=== PATIENT | female | born 1995 | race Caucasian/White ===

== ENCOUNTER 2017-01-29 22:32 | Emergency (ER) | payer MEDICAID ==
[~2017-01-29] VITALS: Ht 162.6 cm; Wt 58.1 kg
[2017-01-29 22:44] VITALS: BP 118/75
[2017-01-30] MEDS ORDERED: IPRATROPIUM BROM 0.5 MG/2.5ML INH SOL NEB ONE
[2017-01-30] MEDS ORDERED: ALBUTEROL SULF 2.5 MG/0.5ML(0.5%) NEB SOLN NEB ONE
== END 2017-01-30 01:37 | disposition home or self-care (01) ==
LOC: ER 22:32
DX: J45.909 Unspecified asthma, uncomplicated (principal)
CPT/HCPCS: 94640

== ENCOUNTER 2017-04-30 13:52 | Emergency (ER) | payer MEDICAID ==
[~2017-04-30] VITALS: Ht 162.6 cm; Wt 59.0 kg
[2017-04-30 14:26] VITALS: BP 117/61
== END 2017-04-30 14:39 | disposition home or self-care (01) ==
LOC: ER 13:52
DX: S00.03XA Contusion of scalp, initial encounter (principal); W19.XXXA Unspecified fall, initial encounter; Y93.89 Activity, other specified; Y99.8 Other external cause status; Y92.89 Other specified places as the place of occurrence of the external cause

== ENCOUNTER 2017-09-13 20:12 | Emergency (ER) | payer MEDICAID ==
[~2017-09-13] VITALS: Ht 149.9 cm; Wt 61.2 kg
[2017-09-13 21:35] VITALS: BP 105/72
== END 2017-09-14 00:21 | disposition home or self-care (01) ==
LOC: ER 20:12
DX: S46.911A Strain of unspecified muscle, fascia and tendon at shoulder and upper arm level, right arm, initial encounter (principal); R20.2 Paresthesia of skin; X58.XXXA Exposure to other specified factors, initial encounter; Y93.89 Activity, other specified; Y92.89 Other specified places as the place of occurrence of the external cause; Y99.8 Other external cause status
CPT/HCPCS: 71010; 73030

== ENCOUNTER 2017-12-15 22:08 | Emergency (ER) | payer MEDICAID ==
[~2017-12-15] VITALS: Ht 162.6 cm; Wt 63.5 kg
[2017-12-15 22:30] VITALS: BP 99/70
[2017-12-15 22:57] LABS: Basophils # (auto) 0 uL; Basophils % (auto) 0.3 % (0.0-2.0); Eosinophils # (auto) 0.1 uL; Eosinophils % (auto) 0.5 % (0.0-7.0); Hematocrit 46.3 % (36.0-46.0); Hemoglobin 15.6 g/dL (12.2-16.2); Lymphocytes # (auto) 0.8 uL; Lymphocytes % (auto) 6.8 % (10.0-50.0); Mean Corpuscular Hemoglobin 30.9 pg (28.0-32.0); Mean Corpuscular Hgb Conc. 33.6 g/dL (32.0-36.0); Monocytes # (auto) 0.7 uL; Monocytes % (auto) 5.8 % (0.0-12.0); Neutrophils # (auto) 10.7 uL; Neutrophils % (auto) 86.6 % (37.0-80.0); Nucleated Red Blood Cells % 0.1 %; Platelet Count (auto) 324 10^3/uL (140-450); Red Blood Cells 5.03 10^6/uL (4.0-5.20); Red Cell Distribution Width 11.9 % (11.8-14.3); White Blood Cell 12.3 10^3/uL (4.4-10.8)
[2017-12-15 23:21] LABS: Albumin 4.5 g/dL (3.4-5.0); BUN/Creatinine Ratio 11.8; Bilirubin, Total 0.5 mg/dL (0.2-1.0); Calcium 9.1 mg/dL (8.5-10.1); Magnesium 2.2 mg/dL (1.6-2.6); Potassium 3.9 mmol/L (3.5-5.1); Total Protein 8.6 g/dL (6.4-8.2)
== END 2017-12-16 03:45 | disposition left against medical advice (07) ==
LOC: ER 22:08
DX: R11.2 Nausea with vomiting, unspecified (principal); R19.7 Diarrhea, unspecified; Z53.21 Procedure and treatment not carried out due to patient leaving prior to being seen by health care provider
CPT/HCPCS: 36415; 80053; 83735; 85025

== ENCOUNTER 2021-04-14 23:12 | Emergency (ER) | payer MEDICAID ==
[~2021-04-14] VITALS: Ht 165.1 cm; Wt 71.7 kg
[2021-04-15] MEDS ORDERED: ACETAMINOPHEN 500 MG TAB PO ONE (03:15)
[2021-04-15] MEDS ORDERED: IBUPROFEN 800 MG TAB PO ONE (03:15)
[2021-04-15 03:25] VITALS: BP 108/73
== END 2021-04-15 03:49 | disposition home or self-care (01) ==
LOC: ER 23:17
DX: S13.9XXA Sprain of joints and ligaments of unspecified parts of neck, initial encounter (principal); S63.502A Unspecified sprain of left wrist, initial encounter; S09.90XA Unspecified injury of head, initial encounter; V80.010A Animal-rider injured by fall from or being thrown from horse in noncollision accident, initial encounter; Y93.89 Activity, other specified; Y92.89 Other specified places as the place of occurrence of the external cause; Y99.8 Other external cause status
CPT/HCPCS: 70450; 72125; 73100

== ENCOUNTER 2023-01-04 15:13 | Emergency (ER) | payer MEDICAID ==
[~2023-01-04] VITALS: Ht 165.1 cm; Wt 68.0 kg
[2023-01-04 16:20] VITALS: BP 113/62
[2023-01-04] MEDS ORDERED: NAPR500T31 PO (17:01)
== END 2023-01-04 17:14 | disposition home or self-care (01) ==
LOC: ER 15:13
DX: M23.92 Unspecified internal derangement of left knee (principal); M25.462 Effusion, left knee
CPT/HCPCS: 73562

== ENCOUNTER 2025-08-06 15:05 | Inpatient (IN) | payer MEDICAID ==
[~2025-08-06] VITALS: Ht 165.1 cm; Wt 68.1 kg
[~2025-08-06 15:05] MED LIST: NAPR-746 PO
--- NOTE | 2025-08-06 15:53 | ED.PDOC ---
HPI Comments HPI: This is a 30 year old female on Testosterone HRT x7 years BIBA presenting to the ED with chief complaint of chest pain. Patient reports that she has been experiencing left sided, sharp chest pain with associated palpitations and worsening pain with deep inspirations for the past hour. Patient relays that their pain is currently a 4/10 at this time. Patient states she has history of cardiomyopathy currently being followed up by her oncologist's office. Patient notes she receives radiation therapy once a week along with having a cardiac stress test before and after therapy each week. Patient reports that her last stress test was yesterday. Patient denies any SOB, dizziness, N/V, syncope, or headache. Denies . Past Medical history: Brain tumor, tumors to back, on radiation therapy, Cardiomyopathy unknown etiology, Testosterone HRT Past Surgical history: Denies Medications: Radiation therapy medication Social History: Tobacco use, ETOH, and drug use. Allergies: NKDA HPI: Poor Historian. REVIEW OF SYSTEMS: CONSTITUTIONAL: Denies acute: fever, diaphoresis, chills, generalized weakness. HEAD: Denies acute: headache, photophobia Eyes: Denies acute: Double vision, vision loss, eye pain, eye discharge. EARS: Denies acute: tinnitus, hearing loss, ear discharge, ear pain, THROAT: Denies acute: sore throat, swelling, difficulty swallowing , pain with swallowing, change in voice. NECK: Denies acute: neck pain, neck swelling, stiff neck. HEART: Denies acute : palpitations, LUNGS: Denies acute: SOB, wheezing, cough, hemoptysis ABDOMEN: Denies acute: abdominal pain, Nausea, Vomiting, diarrhea, melena , hematemesis, hematochezia SKIN: Denies acute: rash, redness, lesions, itchiness. EXTREMITIES: Denies acute: calf pain, weakness, denies pain in extremity. Denies acute: Low back pain. Neuro: Denies acute: focal neurological deficit, motor or sensory focal neurological deficit, tremors, seizure like activity, confusion, dizziness, change in mental status, loss of bowel or bladder function, cauda equina like symptoms. : Denies acute: dysuria, hematuria, flank pain, increase in urinary frequency. PSYCH: Denies acute: hallucination, suicidal ideation, homicidal ideation. FEMALE: Denies acute: abnormal vaginal bleeding, foul odor, unusual discharge. PHYSICAL EXAM: General: ---no-----acute distress, awake and alert. Head: normocephalic, atraumatic. No raccoon's eyes, no browning sign. Neck: supple, trachea is midline, no swelling. Throat: Normal phonation. Eyes:, no erythema, no purulent discharge, no proptosis, no icterus. Heart: regular rate, regular rhythm, no significant murmur appreciated. Lungs: no apparent respiratory distress, Able to speak in full sentences. No wheezing, no rhonchi, no crackles. No stridors Clear to auscultation bilaterally. Abdomen: non tender to palpation, non distended, soft, no guarding, no rebound, + bowel sounds. Neuro: Awake, Alert, oriented to name, self, situation, follows commands GCS=15. Speech is normal. Skin: no petechia, no purpura, no cyanosis, non-pale, not jaundice. Lower extremities: --no - Pitting edema no deformity, no focal swelling, no calf TTP. Makes eye contact. moves all four extremities. Face: no apparent facial droop. ED COURSE: DISCLAIMER: This medical document was created using an electronic medical record system with voice recognition software and computerized dictation system. Although this doc ument has been carefully reviewed, there might still be some phonetic and typographical errors. Occasional wrong-word or "sound-alike" substitutions may have occurred due to the inherent limitations of voice recognition software. These areas are purely typographical due to imperfections of the software programs and do not reflect any compromise in the patient's medical care. Please read the chart carefully and recognize, using context, where these substitutions have occurred. Chief Complaint: Chest Pain Time Seen by MD: 15:49 Primary Care Provider: CARLA Reviewed Notes: Medications, Allergies Allergies: Coded Allergies: NO KNOWN ALLERGIES (Unverified , 09/15/11) Home Meds Active Scripts Naproxen (Naproxen) 500 Mg Tab, 500 MG PO BID, #30 TAB Prov:BHARATHI THOMAS 01/04/23 Information Source: Patient, Emergency Med Personnel Mode of Arrival: EMS Was a procedure done? Was a procedure done?: No CP Differential Dx Differential Diagnosis: N/A Differential Diagnosis: Other (Ddx include but not limitied to gastritis, musculoskeletal pain, radiculopathy, atypical chest pain, dissection, aneurysm, ACS, unstable angina, hiatal hernia, GERD, anxiety, costochondritis, PE, pneumothroax, neoplasm, cardiac ischemia, drug abuse, anemia.) X-Ray, Labs, Meds, VS Vital Signs Date Time Temp Pulse Resp B/P (MAP) Pulse Ox O2 Delivery O2 Flow Rate FiO2 08/06/25 20:00 72 16 113/63 (80) 97 08/06/25 18:00 69 10 109/50 (69) 98 08/06/25 16:18 58 08/06/25 16:00 85 08/06/25 16:00 69 19 98 Room Air* 0 21 08/06/25 16:00 98.3 69 19 136/64 (88) 98 98.3 08/06/25 15:57 98.6 70 16 122/86 100 98.6 08/06/25 15:52 98.2 64 16 126/74 (91) 99 98.2 08/06/25 15:14 60 Lab Test 08/06/25 19:46 08/06/25 17:41 08/06/25 17:15 08/06/25 16:29 Range/Units Magnesium Level 2.1 1.6-2.6 mg/dL Troponin I High Sensitivity 5 5 4 </=54 ng/L C-Reactive Protein High Sensitivity 0.05 <1.0 mg/dL Urine Color Colorless Yellow Urine Clarity Clear Clear Urine pH 7.0 5.0-9.0 Urine Specific [place] 1.013 1.001-1.035 Urine Protein Negative Negative Urine Ketones Negative Negative Urine Blood Negative Negative /uL Urine Nitrite Negative Negative Urine Bilirubin Negative Negative Urine Urobilinogen Normal Negative mg/dL Urine Leukocyte Esterase Negative Negative /uL Urine RBC <1 0 - 3 /hpf Urine Microscopic WBC 2 0-3 /HPF Urine Squamous Epithelial Cells Few <5 /hpf Urine Bacteria Few H None Seen /hpf Urine Glucose Normal Normal mg/dL Urine Opiates Screen Pending Urine Fentanyl Screen Pending Urine Barbiturates Screen Pending Urine Phencyclidine Screen Pending Urine Amphetamines Screen Pending Urine Benzodiazepines Screen Pending Urine Cocaine Screen Pending Urine Cannabinoids Screen Pending White Blood Count 8.8 4.4-10.8 10^3/uL Red Blood Count 4.67 4.5-5.90 10^6/uL Hemoglobin 14.9 13.5-17.5 g/dL Hematocrit 42.5 41.0-53.0 % Mean Corpuscular Volume 90.9 80.0-100.0 fL Mean Corpuscular Hemoglobin 31.9 28.0-32.0 pg Mean Corpuscular Hemoglobin Concent 35.1 32.0-36.0 g/dL Red Cell Distribution Width 12.0 11.8-14.3 % Platelet Count 266 140-450 10^3/uL Mean Platelet Volume 8.7 6.9-10.8 fL Neutrophils (%) (Auto) 67.7 37.0-80.0 % Lymphocytes (%) (Auto) 24.9 10.0-50.0 % Monocytes (%) (Auto) 4.9 0.0-12.0 % Eosinophils (%) (Auto) 2.0 0.0-7.0 % Basophils (%) (Auto) 0.5 0.0-2.0 % Neutrophils # (Auto) 5.9 1.6-8.6 10 ^3/uL Lymphocytes # (Auto) 2.2 0.4-5.4 10 ^3/uL Monocytes # (Auto) 0.4 0-1.3 10 ^3/uL Eosinophils # (Auto) 0.2 0-0.8 10 ^3/uL Basophils # (Auto) 0 0-0.2 10 ^3/uL Nucleated Red Blood Cells 0.0 % Sodium Level 143 136-145 mmol/L Potassium Level 4.0 3.5-5.1 mmol/L Chloride Level 107 98-107 mmol/L Carbon Dioxide Level 26 20-31 mmol/L Anion Gap 10 5-15 Blood Urea Nitrogen 9 9-23 mg/dL Creatinine 0.89 0.700-1.30 mg/dL Glomerular Filtration Rate Calc 118 >90 mL/min BUN/Creatinine Ratio 10.1 10.0-20.0 Serum Glucose 86 74-106 mg/dL Calcium Level 9.3 8.7-10.4 mg/dL Total Bilirubin 0.3 0.2-1.0 mg/dL Aspartate Amino Transferase (AST) 28 13-40 U/L Alanine Aminotransferase (ALT) 34 7-40 U/L Alkaline Phosphatase 78 46-116 U/L B-Type Natriuretic Peptide 5.26 0-100 pg/mL Total Protein 7.2 5.7-8.2 g/dL Albumin 4.4 3.2-4.8 g/dL Test 08/06/25 16:24 Range/Units Lactic Acid Level 0.8 0.4-2.0 mmol/L [place] [id number] Ph: [phone] DIAGNOSTIC IMAGING Diagnostic Imaging Report : [id number] Signed PATIENT: DANA PEÑALOZA RACCT: [id number] UNIT: [id number] : 1995 LOC: ER ROOM / BED: / AGE / SEX: 30 / M ADM STATUS: REG ER SERVICE 1530 ORDERING PHYSICIAN: BHARAT PADILLA DO PROCEDURE(s): CXRP - CHEST PORTABLE REASON: cp ORDER NUMBER(s): [id number], ACCESSION NUMBER(s): [id number] CHEST RADIOGRAPH Indication: cp Technique: Single frontal view of the chest was obtained COMPARISON: None FINDINGS: Lines and Tubes: None Lungs: Increased interstitial prominence. This may represent pulmonary vascular congestion and/or viral pneumonia. Pleura: No effusion.No pneumothorax. Cardiomediastinal contours: Cardiomegaly. Bones: Unremarkable IMPRESSION: Increased interstitial prominence. This may represent pulmonary vascular congestion and/or viral pneumonia. ATED BY: NADIR FUENTES MD DICTATED DATE/TIME: 08/06/251612 SIGNED BY: NADIR FUENTES MD SIGNED DATE/TIME: 08/06/251612 CC: Time of 1ST Reevaluation: 16:49 Reevaluation 1ST: Unchanged Patient Education/Counseling: Diagnosis, Treatment Family Education/Counseling: No Family Present Comments MDM: patient presented with the above HPI.---chest pain with a history of cardiomyopathy---workup was initiated. patient was found with the above mentioned diagnosis. the following medications were ordered: please refer to order lists of meds and tests obtained by myself Dr. Padilla. Patient ED course and VS have been stabilized. Patient has been reassessed in the ED and remained in a stable condition. Pertinent incidental findings were discussed with the patient and/or family. Patient/family voices understanding and is agreeable with plan. Patient has been observed in the ED adequate length of time to insure improv ement/stability. Escalation of care considered: Consideration of escalation to observation or admission Patient was ADMITTED to the medicine team for further evaluation and treatment of their presentation. All the reports of any imaging studies that were ordered by myself were reviewed by myself. Departure 1 Departure Time of Disposition: 20:07 Impression: Primary Impression: Chest pain Additional Impression: Cardiomyopathy Disposition: 09 ADMITTED INPATIENT Admit to: Tele Condition: Guarded Discharged With: Self Critical Care Note Critical Care Time?: No Heart Score Heart Score: Heart Score Response (Comments) Value History Moderate Suspicious 1 EKG Normal 0 Age <45 0 Risk Factors 1 or 2 risk factors 1 Troponin Normal limit 0 Total 2 I personally scribed for BHARAT PADILLA DO ([email or web address]) on 08/06/25 at 15:53. Elect ronically submitted by Lefty Camargo ([email or web address]). I personally scribed for BHARAT PADILLA DO ([email or web address]) on 08/06/25 at 16:29. Jose carterically submitted by Lefty Camargo ([email or web address]). BHARAT PADILLA DO Aug 06, 2025 15:53
[2025-08-06 16:00] VITALS: PULSE 69; RESP 19; O2SAT 98
--- NOTE | 2025-08-06 16:15 | DVH ---
CHEST RADIOGRAPH Indication: cp Technique: Single frontal view of the chest was obtained COMPARISON: None FINDINGS: Lines and Tubes: None Lungs: Increased interstitial prominence. This may represent pulmonary vascular congestion and/or viral pneumonia. Pleura: No effusion.No pneumothorax. Cardiomediastinal contours: Cardiomegaly. Bones: Unremarkable IMPRESSION: Increased interstitial prominence. This may represent pulmonary vascular congestion and/or viral pneumonia.
[2025-08-06 16:37] LABS: Hematocrit 42.5 % (41.0-53.0); Hemoglobin 14.9 g/dL (13.5-17.5); Mean Corpuscular Hemoglobin 31.9 pg (28.0-32.0); Mean Corpuscular Volume 90.9 fL (80.0-100.0); Nucleated Red Blood Cells % 0.0 %
[2025-08-06 17:00] LABS: Alanine Aminotransferase 34 U/L (7-40); Albumin 4.4 g/dL (3.2-4.8); Alkaline Phosphatase 78 U/L (46-116); Anion Gap 10 (5-15); BUN/Creatinine Ratio 10.1 (10.0-20.0); Bilirubin, Total 0.3 mg/dL (0.2-1.0); Blood Urea Nitrogen 9 mg/dL (9-23); Calcium 9.3 mg/dL (8.7-10.4); Carbon Dioxide 26 mmol/L (20-31); Chloride 107 mmol/L (98-107); Glucose 86 mg/dL (74-106); Potassium 4.0 mmol/L (3.5-5.1); Sodium 143 mmol/L (136-145); Total Protein 7.2 g/dL (5.7-8.2)
[2025-08-06 18:04] LABS: Urine Protein, UAD Negative (Negative)
[2025-08-06] MEDS: IOHEXOL 300 MG/ML 100ML BOTTLE IJ ONE (19:30)
[2025-08-06] MEDS ORDERED: ONDANSETRON HCL 4 MG/2 ML VIAL IV PRN (22:00)
[2025-08-06] MEDS ORDERED: HYDROcodone-ACET 5/325MG TAB PO PRN (22:00)
--- NOTE | 2025-08-06 22:26 | DVHHPRES ---
History of Present Illness Resident Creating Document: DARRYL MENDOZA History of Present Illness Patient is a 30-year-old female on Testosterone hormone replacement therapy for 7 years with past medical history of brain tumor, metastasis to back on radiation therapy and hereditary cardiomyopathy, presented to [facility] ED with complaint of chest pain. The patient reports that the chest pain began today around 2:00 p.m. while resting at home, described as left- sided, sharp, non-radiating, 4/10 in intensity and associated with headache, dizziness and shortness breath. She also noted tingling in the right hand at onset. The patient denies nausea, vomiting, syncope, or . She reports a history of cardiomyopathy, currently managed by her cardiology. She receives radiation therapy once weekly and undergoes a cardiac stress test before and after each therapy session; her recent stress test was yesterday and was normal. On evaluation in the ED, patient is afebrile, vitals are stable. Initial labs show within normal limits. Chest X-ray shows increased interstitial prominence and cardiomegaly. The patient was started on IV antibiotics and IV fluids. Patient is admitted for further evaluation and management. Past Medical History brain tumor, hereditary cardiomyopathy Past Surgical History: None Family History Mother and brother: Hereditary cardiomyopathy Smoke: <1 pack per day ALCOHOL: none Drugs: None Lives: with Family Review of Systems Review of Systems Constitutional: Headache, dizziness Eyes: No Pain, No Vision change, No Conjunctivae inflammation, No Eyelid inflammation, No Other, No Redness ENT: No Ear pain, No Ear discharge, No Nose pain, No Nose discharge, No Nose congestion, No Mouth pain, No Mouth swelling, No Throat pain, No Throat swelling, No Other Cardiovascular: Chest Pain, Palpitations, No Orthopnea, No Paroxysmal No Dyspn ea, No Edema, No Lt Headedness, No Other Respiratory: Cough, No Dry, Shortness of breath, No SOB with exertion, No Wheezing, No Hemoptysis, No Pleuritic Pain, No Sputum, No Other Gastrointestinal: No Nausea, No Vomiting, No Abdominal Pain, No Diarrhea, No Constipation, No Melena, No Hematochezia, No Other Genitourinary: No Dysuria, No Frequency, No Incontinence, No Hematuria, No Retention, No Other Musculoskeletal: No other, No neck pain, No shoulder pain, No arm pain, No back pain, No hand pain, No leg pain, No foot pain Skin: No Rash, No Lesions, No Jaundice, No Bruising, No Other Allergies: Coded Allergies: NO KNOWN ALLERGIES (Unverified , 09/15/11) Medications Current Medications Medications Dose Ordered Sig/Krista Route Start Time Stop Time Status Last Admin Dose Admin Acetaminophen/ Hydrocodone Bitart 1 tab Q4HP PRN PO 08/06/25 22:00 UNV Ondansetron HCl 4 mg Q4HP PRN IV 08/06/25 22:00 UNV Acetaminophen 650 mg Q6HP PRN PO 08/06/25 22:00 UNV Azithromycin 250 ml @ 125 mls/hr DAILY IV 08/07/25 10:00 UNV Albuterol 2.5 mg Q6HPRN PRN NEB 08/06/25 22:00 UNV Ipratropium [place] 0.5 mg Q6HPRN PRN NEB 08/06/25 22:00 UNV Exam Vital Signs Vital Signs Date Time Temp Pulse Resp B/P (MAP) Pulse Ox O2 Delivery O2 Flow Rate FiO2 08/06/25 20:00 72 16 113/63 (80) 97 08/06/25 16:00 Room Air* 0 21 08/06/25 16:00 98.3 98.3 Exam General Appearance: Cooperative. Well developed. Well nourished. NAD Head Exam: Normal inspection Neck Exam: Normal inspection. Non-tender. Normal alignment Pulmonary/Respiratory: Bilateral rhonchi. Chest non-tender. Clear bilateral breath sounds, no crackles, no wheezing. Cardiovascular/Chest: Regular rate and rhythm. No murmurs. No JVD. Peripheral Pulses: 2+ Radial (R). 2+ Radial (L). 2+ Pedal (R). 2+ Pedal (L) Abdominal Exam: Normal bowel sounds. Soft. normal abdomen, no visible veins, Nontender. No hepatospenomegaly. No masses Ankle Exam: Negative ankle edema Lower extremities: Negative lower extremity edema Neuro/Mental Status: A&O x4. Coherent. Thoughts/Psych: Normal thought pattern. Appropriate mood and affect. Good judgement and insight Skin Exam: Normal inspection. Normal color. Warm. Dry Labs/Xrays Labs Test 08/06/25 19:46 08/06/25 17:15 08/06/25 16:29 08/06/25 16:24 Range/Units Troponin I High Sensitivity 5 </=54 ng/L Urine Color Colorless Yellow Urine Clarity Clear Clear Urine pH 7.0 5.0-9.0 Urine Specific [place] 1.013 1.001-1.035 Urine Protein Negative Negative Urine Ketones Negative Negative Urine Blood Negative Negative /uL Urine Nitrite Negative Negative Urine Bilirubin Negative Negative Urine Urobilinogen Normal Negative mg/dL Urine Leukocyte Esterase Negative Negative /uL Urine RBC <1 0 - 3 /hpf Urine Microscopic WBC 2 0-3 /HPF Urine Squamous Epithelial Cells Few <5 /hpf Urine Bacteria Few H None Seen /hpf Urine Glucose Normal Normal mg/dL White Blood Count 8.8 4.4-10.8 10^3/uL Red Blood Count 4.67 4.5-5.90 10^6/uL Hemoglobin 14.9 13.5-17.5 g/dL Hematocrit 42.5 41.0-53.0 % Mean Corpuscular Volume 90.9 80.0-100.0 fL Mean Corpuscular Hemoglobin 31.9 28.0-32.0 pg Mean Corpuscular Hemoglobin Concent 35.1 32.0-36.0 g/dL Red Cell Distribution Width 12.0 11.8-14.3 % Platelet Count 266 140-450 10^3/uL Mean Platelet Volume 8.7 6.9-10.8 fL Neutrophils (%) (Auto) 67.7 37.0-80.0 % Lymphocytes (%) (Auto) 24.9 10.0-50.0 % Monocytes (%) (Auto) 4.9 0.0-12.0 % Eosinophils (%) (Auto) 2.0 0.0-7.0 % Basophils (%) (Auto) 0.5 0.0-2.0 % Neutrophils # (Auto) 5.9 1.6-8.6 10 ^3/uL Lymphocytes # (Auto) 2.2 0.4-5.4 10 ^3/uL Monocytes # (Auto) 0.4 0-1.3 10 ^3/uL Eosinophils # (Auto) 0.2 0-0.8 10 ^3/uL Basophils # (Auto) 0 0-0.2 10 ^3/uL Nucleated Red Blood Cells 0.0 % Sodium Level 143 136-145 mmol/L Potassium Level 4.0 3.5-5.1 mmol/L Chloride Level 107 98-107 mmol/L Carbon Dioxide Level 26 20-31 mmol/L Anion Gap 10 5-15 Blood Urea Nitrogen 9 9-23 mg/dL Creatinine 0.89 0.700-1.30 mg/dL Glomerular Filtration Rate Calc 118 >90 mL/min BUN/Creatinine Ratio 10.1 10.0-20.0 Serum Glucose 86 74-106 mg/dL Calcium Level 9.3 8.7-10.4 mg/dL Total Bilirubin 0.3 0.2-1.0 mg/dL Aspartate Amino Transferase (AST) 28 13-40 U/L Alanine Aminotransferase (ALT) 34 7-40 U/L Alkaline Phosphatase 78 46-116 U/L B-Type Natriuretic Peptide 5.26 0-100 pg/mL Total Protein 7.2 5.7-8.2 g/dL Albumin 4.4 3.2-4.8 g/dL Lactic Acid Level 0.8 0.4-2.0 mmol/L SEPSIS Sepsis Screen Date sepsis recognized/suspect: Aug 06, 2025 Time Sepsis recognized/suspect: 1509 Recent Procedure: No On Antibiotic Therapy: No Respiratory Rate >20: No Heart Rate >90: No Temp<36 C (96.8 F) or >38.3 C: No SBP <90 or MAP <65 mmHG: No New Acute Mental Status Change: No Is the patient on CPAP, BIPAP,: No Physician Orders Surface Hydrologist (08/06/25 ) Chest Portable (08/06/25 15:30) Electrocardigram (08/06/25 15:30) Electrocardigram (08/06/25 16:30) Electrocardigram (08/06/25 18:30) Admit (08/06/25 21:57) Allergies (08/06/25 21:57) Code Status (08/06/25 21:57) Hydrocodone-Acet 5/325mg Tab ([place] 5/32 (08/06/25 22:00) Ondansetron Hcl (Zofran) (08/06/25 22:00) Complete Blood Count (08/07/25 04:00) Comprehensive Metabolic Panel (08/07/25 04:00) Echo 2d Mode Cardiac Dop (08/06/25 21:57) Condition: Stable (08/06/25 21:57) Acetaminophen Tablet (Tylenol Tablet) (08/06/25 22:00) Stat Ekg For Chest Pain (08/06/25 21:57) Notify Of Changes From Base (08/06/25 21:57) Drug Screen (08/06/25 21:57) Magnesium (08/06/25 21:57) Azithromycin 500mg/ 250ml (Zithromax 50 (08/07/25 10:00) Azithromycin 500mg/ 250ml (Zithromax 50 (08/06/25 22:00) Sodium Chloride 0.9% (08/06/25 22:00) Covid19 Antigen Awa (08/06/25 ) Rapid Influenza A&B (08/06/25 21:57) Cardiac Diet-2gna,Lofat,Lochol (08/07/25 Breakfast) C-Reactive Protein (08/06/25 21:57) Erythrocyte Sedimentation Rate (08/06/25 21:57) Respiratory Culture W/ Gs (08/06/25 21:57) Albuterol Medneb (Ventolin Medneb) (08/06/25 22:00) Ipratropium Medneb (Atrovent Medneb) (08/06/25 22:00) Med Neb Initial Treatment (08/06/25 21:57) Vital Signs Date Time Temp Pulse Resp B/P (MAP) Pulse Ox O2 Delivery O2 Flow Rate FiO2 08/06/25 20:00 72 16 113/63 (80) 97 08/06/25 18:00 69 10 109/50 (69) 98 08/06/25 16:18 58 08/06/25 16:00 85 08/06/25 16:00 69 19 98 Room Air* 0 21 08/06/25 16:00 98.3 69 19 136/64 (88) 98 98.3 08/06/25 15:57 98.6 70 16 122/86 100 98.6 08/06/25 15:52 98.2 64 16 126/74 (91) 99 98.2 08/06/25 15:14 60 Laboratory Tests Test 08/06/25 16:24 08/06/25 16:29 Lactic Acid Level 0.8 mmol/L (0.4-2.0) White Blood Count 8.8 10^3/uL (4.4-10.8) Assessment/Plan Assessment/Plan Atypical pneumonia Possible viral pneumonia Chest X-ray: Increased interstitial prominence. This may represent pulmonary vascular congestion and/or viral pneumonia. ESR CRP Pain management with Tylenol and [place] Zofran 4 mg IV q4h Azithromycin IV daily IV NS 100 mL MLS/HR one Albuterol 2.5 mg nebs q6h Ipratropium 0.5 mg NEB q6h sputum culture Cardiomegaly History of hereditary cardiomyopathy Echocardiogram ordered Chest X-ray: Cardiomegaly BNP 5.26 Brain tumor on radiation therapy Head CT (04/14/21): No intracranial hemorrhage or skull fracture. The brain is normal in appearance. Diet: Cardiac Goals of care: Full code, discussed for >30 minutes on 08/06/25 Plan discussed with patient Plan discussed with Dr. Mendoza Plan discussed with: Patient My Orders Orders - DARRYL MENDOZA RESIDENT Procedure Category Date Status Time Admit ADMIT 08/06/25 Transmitted 21:57 Allergies HEIKE 08/06/25 In Process 21:57 Code Status CODE 08/06/25 Transmitted 21:57 Hydrocodone-Acet PHA 08/06/25 Logged 5/325mg Tab ([place] 22:00 Ondansetron Hcl PHA 08/06/25 Logged (Zofran) 22:00 Complete Blood Count LAB 08/07/25 Verified 04:00 Comprehensive LAB 08/07/25 Verified Metabolic Panel 04:00 Echo 2d Mode Cardiac US 08/06/25 Logged DOP 21:57 Condition: Stable HEIKE 08/06/25 In Process 21:57 Acetaminophen Tablet PHA 08/06/25 Logged (Tylenol Tablet) 22:00 Stat Ekg For Chest HEIKE 08/06/25 In Process Pain 21:57 Notify Md Of Changes HEIKE 08/06/25 In Process From Base 21:57 Drug Screen LAB 08/06/25 Logged 21:57 Magnesium LAB 08/06/25 Logged 21:57 Azithromycin 500mg/ PHA 08/07/25 Logged 250ml (Zithromax 50 10:00 Azithromycin 500mg/ PHA 08/06/25 Logged 250ml (Zithromax 50 22:00 Sodium Chloride 0.9% PHA 08/06/25 Logged 22:00 Covid19 Antigen Awa LAB 08/06/25 Logged Rapid Influenza A&B LAB 08/06/25 Logged 21:57 Cardiac DIET 08/07/25 Transmitted Diet-2gna,Lofat,Lochol Breakfast C-Reactive Protein LAB 08/06/25 Logged 21:57 Erythrocyte LAB 08/06/25 Logged Sedimentation Rate 21:57 Respiratory Culture JENSEN 08/06/25 Logged W/ Gs 21:57 Albuterol Medneb PHA 08/06/25 Logged (Ventolin Medneb) 22:00 Ipratropium Medneb PHA 08/06/25 Logged (Atrovent Medneb) 22:00 Med Neb Initial RT 08/06/25 Logged Treatment 21:57 Date of Service: Aug 06, 2025 Billing Provider: MARQUITA MENDOZA MD Common Visit Codes: 59570-[id number] INP/OBS CARE (HIGH) Secondary Visit Codes: 68699-[id number] CARE PLAN 30 MINUTES DARRYL MENDOZA RESIDENT Aug 06, 2025 22:26
[2025-08-06 22:37] VITALS: BP 113/63; PULSE 72; RESP 16; TEMP 98.3; O2SAT 97
[2025-08-06 22:59] LABS: Magnesium 2.1 mg/dL (1.6-2.6)
[2025-08-06] MEDS: SODIUM CHLORIDE 0.9% 1,000 ML IV ONE (23:43)
[2025-08-06] MEDS: AZITHROMYCIN 500MG/ 250ML 250 ML IV ONE (23:50)
[2025-08-07 05:40] LABS: COVID19 ANTIGEN SOFIA FIA NEGATIVE (NEGATIVE)
[2025-08-07 05:46] LABS: Hematocrit 44.2 % (41.0-53.0); Hemoglobin 15.1 g/dL (13.5-17.5); Mean Corpuscular Hemoglobin 31.4 pg (28.0-32.0); Mean Corpuscular Volume 91.7 fL (80.0-100.0); Nucleated Red Blood Cells % 0.1 %
[2025-08-07 06:04] LABS: Alanine Aminotransferase 38 U/L (7-40); Albumin 4.1 g/dL (3.2-4.8); Alkaline Phosphatase 75 U/L (46-116); Anion Gap 11 (5-15); BUN/Creatinine Ratio 9.5 (10.0-20.0); Bilirubin, Total 0.6 mg/dL (0.2-1.0); Calcium 9.3 mg/dL (8.7-10.4); Carbon Dioxide 27 mmol/L (20-31); Chloride 106 mmol/L (98-107); Glucose 86 mg/dL (74-106); Potassium 4.2 mmol/L (3.5-5.1); Sodium 144 mmol/L (136-145); Total Protein 6.9 g/dL (5.7-8.2)
[2025-08-07 06:11] LABS: Blood Urea Nitrogen 9 mg/dL (9-23)
[2025-08-07 08:00] VITALS: PULSE 65; RESP 15; O2SAT 98
[2025-08-07 09:48] VITALS: O2SAT 96
[2025-08-07] MEDS ORDERED: AZITHROMYCIN 500MG/ 250ML 250 ML IV SCH (10:00)
--- NOTE | 2025-08-07 11:44 | ECG ---
[facility] Test Date: 2025-08-06 Test Time: 16:18:18 Pat Name: DANA PEÑALOZA Department: ER Room: 0202T Gender: M Eyelet Punch Operator: DR HOODB: 1995 Requested By: BHARAT PADILLA Order Number: [id number] Reading MD: Antoni Stewart Measurements Intervals [place] Rate: 58 P: 64 MT: 180 QRS: 32 QRSD: 92 T: 24 QT: 397 QTc: 390 Interpretive Statements Sinus rhythm Ventricular premature complex Electronically Signed On 08-08-2025 15:44:47 PST by Antoni Stewart Please click the below link to view image of tracing.
[2025-08-07] MEDS: ACETAMINOPHEN 325 MG TAB PO PRN (13:19)
--- NOTE | 2025-08-07 16:04 | DVHPNRES ---
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 She also complains of shortness of breath and cough we started with the same time as the chest pain. Patient reports having headache since the past 3 days. Patient reports that a recent cardiac stress test done was normal. Patient denies any nausea, vomiting or syncope. 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, hereditary cardiomyopathy, on testosterone hormone replacement therapy Family history: Family history of hereditary cardiomyopathy in mother and brother Social history: to pack-year smoking history, denies alcohol and drug use Allergic history: no known allergies Constitutional: Headache, dizziness Eyes: No Pain, No Vision change, No Conjunctivae inflammation, No Eyelid inflammation, No Other, No Redness ENT: No Ear pain, No Ear discharge, No Nose pain, No Nose discharge, No Nose congestion, No Mouth pain, No Mouth swelling, No Throat pain, No Throat swelling, No Other Cardiovascular: Chest Pain, Palpitations, No Orthopnea, No Paroxysmal No Dyspnea, No Edema, No Lt Headedness, No Other Respiratory: Cough, No Dry, Shortness of breath, No SOB with exertion, No Wheezing, No Hemoptysis, No Pleuritic Pain, No Sputum, No Other Gastrointestinal: No Nausea, No Vomiting, No Abdominal Pain, No Diarrhea, No Constipation, No Melena, No Hematochezia, No Other Genitourinary: No Dysuria, No Frequency, No Incontinence, No Hematuria, No Retention, No Other Musculoskeletal: No other, No neck pain, No shoulder pain, No arm pain, No back pain, No hand pain, No leg pain, No foot pain Skin: No Rash, No Lesions, No Jaundice, No Bruising, No Other Objective vital signs Vital Sign Date Time Temp Pulse Resp B/P (MAP) Pulse Ox O2 Delivery O2 Flow Rate FiO2 08/07/25 14:00 70 13 111/69 (83) 96 08/07/25 09:48 Room Air 08/07/25 09:48 0 21 08/07/25 08:00 98.1 98.1 Total Intake and Output 08/06/25 08/06/25 08/07/25 15:00 23:00 07:00 Intake Total 300 ml Balance 300 ml medications Current Medications Medications Dose Ordered Sig/Krista Route Start Time Stop Time Status Last Admin Dose Admin Acetaminophen/ Hydrocodone Bitart 1 tab Q4HP PRN PO 08/06/25 22:00 Ondansetron HCl 4 mg Q4HP PRN IV 08/06/25 22:00 Acetaminophen 650 mg Q6HP PRN PO 08/06/25 22:00 08/07/25 13:19 650 MG Albuterol 2.5 mg Q6HPRN PRN NEB 08/06/25 22:00 Ipratropium [place] 0.5 mg Q6HPRN PRN NEB 08/06/25 22:00 Azithromycin 250 ml @ 125 mls/hr Q24H IV 08/07/25 22:45 Ceftriaxone Sodium 50 ml @ 100 mls/hr DAILY@ IV 08/08/25 09:00 Examination General Appearance: Cooperative. Well developed. Well nourished. NAD Head Exam: Normal inspection Neck Exam: Normal inspection. Non-tender. Normal alignment Pulmonary/Respiratory: Bilateral rhonchi. Chest non-tender. Clear bilateral breath sounds, no crackles, no wheezing. Cardiovascular/Chest: Regular rate and rhythm. No murmurs. No JVD. Peripheral Pulses: 2+ Radial (R). 2+ Radial (L). 2+ Pedal (R). 2+ Pedal (L) Abdominal Exam: Normal bowel sounds. Soft. normal abdomen, no visible veins, Nontender. No hepatospenomegaly. No masses Ankle Exam: Negative ankle edema Lower extremities: Negative lower extremity edema Neuro/Mental Status: A&O x4. Coherent. Thoughts/Psych: Normal thought pattern. Appropriate mood and affect. Good judgement and insight Skin Exam: Normal inspection. Normal color. Warm. Dry laboratory and microbiology Laboratory Tests 08/07/25 05:14 Test 08/07/25 05:14 Range/Units Serum Glucose 86 74-106 mg/dL Problem List/Assessment/Plan Problem List/Assessment/Plan Assessment and plan Atypical pneumonia Possible viral pneumonia Chest X-ray: Increased interstitial prominence. This may represent pulmonary vascular congestion and/or viral pneumonia. ESR CRP Pain management with Tylenol and [place] Zofran 4 mg IV q4h Azithromycin IV daily IV NS 100 mL MLS/HR one Albuterol 2.5 mg nebs q6h Ipratropium 0.5 mg NEB q6h sputum culture History of hereditary cardiomyopathy Cardiomegaly due to above Echocardiogram ordered Chest X-ray: Cardiomegaly BNP 5.26 Brain tumor on radiation therapy Paraspinal metastasis Head CT (04/14/21): No intracranial hemorrhage or skull fracture. The brain is normal in appearance. Gender affirming care Diet: Cardiac Goals of care: Full code Plan discussed with patient Plan discussed with Dr. Winter Plan discussed with: Patient Date of Service: Aug 07, 2025 Billing Provider: CHATO WINTER MD Common Visit Codes: [id number] INP/OBS CARE(HIGH) MOLINA LAMAR RESIDENT Aug 07, 2025 16:04 CHATO WINTER MD Aug 07, 2025 22:25
--- NOTE | 2025-08-07 17:32 | DVH ---
CLINICAL HISTORY: presyncope TECHNIQUE: [place]-scale, Color and Duplex Doppler imaging of the bilateral carotid systems was performed. COMPARISON: None Findings: Right Carotid system: There is minimal plaque present in the right carotid system. Left Carotid system: There is minimal plaque present in the left carotid system. The following flow velocities were obtained (cm/sec). Right Carotid System: ICA PSV: 93 cm/sec ICA PDV: 28 cm/sec ICA/CCA Ratio: 1.2 Left Carotid System: ICA PSV: 87 cm/sec ICA PDV: 35 cm/sec ICA/CCA Ratio: 1.3 The right and left common carotid and external carotid arteries are patent. There is antegrade flow in both vertebral arteries and external carotid arteries. IMPRESSION: LESS THAN 50% RIGHT ICA NARROWING. LESS THAN 50% LEFT ICA NARROWING. Estimation of carotid stenosis is based on velocity parameters that correlate the residual internal carotid diameter with that of the more distal vessel in accordance with the [place] Symptomatic Carotid Endarterectomy Trial (NASCET).
[2025-08-07 18:33] VITALS: BP 122/90; PULSE 77; RESP 18; TEMP 97.9; O2SAT 98
[2025-08-07 19:45] LABS: Amphetamine Screen, Urine Neg (NEGATIVE); Barbiturate Scree,Urine Neg (NEGATIVE); Benzodiazephine Screen, Urine Neg (NEGATIVE); Cannabinoid Screen, Urine Neg (NEGATIVE); Cocaine Screen, Urine Neg (NEGATIVE); Opiate Scree,Urine Neg (NEGATIVE); Phencyclidine Screen, Urine Neg (NEGATIVE)
[2025-08-07 20:00] VITALS: PULSE 79; RESP 18; O2SAT 97
[2025-08-07 20:20] VITALS: O2SAT 97
[2025-08-07 21:00] VITALS: BP 117/61; PULSE 64; RESP 16; O2SAT 99
[2025-08-07] MEDS: AZITHROMYCIN 500MG/ 250ML 250 ML IV SCH (21:58)
[2025-08-08] VITALS (13 sets, daily range): BP systolic 96–121; BP diastolic 58–81; PULSE 63–89; RESP 15–19; TEMP 96.1–98.1; O2SAT 96–100
[2025-08-08] MEDS ORDERED: HYDROmorphone HCL 2 MG/ML VL/or syr IV PRN (01:15)
[2025-08-08 06:39] LABS: Hematocrit 44.7 % (41.0-53.0); Hemoglobin 15.5 g/dL (13.5-17.5); Mean Corpuscular Hemoglobin 32.0 pg (28.0-32.0); Mean Corpuscular Volume 92.2 fL (80.0-100.0); Nucleated Red Blood Cells % 0.1 %
[2025-08-08 07:03] LABS: Alanine Aminotransferase 38 U/L (7-40); Alkaline Phosphatase 78 U/L (46-116); Anion Gap 9 (5-15); BUN/Creatinine Ratio 10.6 (10.0-20.0); Blood Urea Nitrogen 10 mg/dL (9-23); Calcium 9.4 mg/dL (8.7-10.4); Carbon Dioxide 28 mmol/L (20-31); Chloride 105 mmol/L (98-107); Glucose 76 mg/dL (74-106); Potassium 4.2 mmol/L (3.5-5.1); Sodium 142 mmol/L (136-145)
[2025-08-08 07:04] LABS: Albumin 4.4 g/dL (3.2-4.8); Total Protein 7.2 g/dL (5.7-8.2)
[2025-08-08 07:05] LABS: Bilirubin, Total 0.6 mg/dL (0.2-1.0)
--- NOTE | 2025-08-08 13:36 | DVHPNRES ---
Progress Note Date Seen: Aug 08, 2025 Resident Creating Document: MOLINA LAMAR RESIDENT Medical Necessity Reason Pt with a Central, PICC or Fol: No Subjective Review of Systems Patient seen at bedside. c/o mild chest pain. patient has a h/o hereditary cardiomyopathy. echo pending. 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 She also complains of shortness of breath and cough we started with the same time as the chest pain. Patient reports having headache since the past 3 days. Patient reports that a recent cardiac stress test done was normal. Patient denies any nausea, vomiting or syncope. 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, hereditary cardiomyopathy, on testosterone hormone replacement therapy Family history: Family history of hereditary cardiomyopathy in mother and brother Social history: to pack-year smoking history, denies alcohol and drug use Allergic history: no known allergies Constitutional: Headache, dizziness Eyes: No Pain, No Vision change, No Conjunctivae inflammation, No Eyelid inflammation, No Other, No Redness ENT: No Ear pain, No Ear discharge, No Nose pain, No Nose discharge, No Nose congestion, No Mouth pain, No Mouth swelling, No Throat pain, No Throat swelling, No Other Cardiovascular: Chest Pain, Palpitations, No Orthopnea, No Paroxysmal No Dyspnea, No Edema, No Lt Headedness, No Other Respiratory: Cough, No Dry, Shortness of breath, No SOB with exertion, No Wheezing, No Hemoptysis, No Pleuritic Pain, No Sputum, No Other Gastrointestinal: No Nausea, No Vomiting, No Abdominal Pain, No Diarrhea, No Constipation, No Melena, No Hematochezia, No Other Genitourinary: No Dysuria, No Frequency, No Incontinence, No Hematuria, No Retention, No Other Musculoskeletal: No other, No neck pain, No shoulder pain, No arm pain, No back pain, No hand pain, No leg pain, No foot pain Skin: No Rash, No Lesions, No Jaundice, No Bruising, No Other Objective vital signs Vital Sign Date Time Temp Pulse Resp B/P (MAP) Pulse Ox O2 Delivery O2 Flow Rate FiO2 08/08/25 09:00 98.0 66 17 99/67 (78) 97 98.0 08/08/25 07:54 Room Air* 0 21 Total Intake and Output 08/07/25 08/07/25 08/08/25 15:00 23:00 07:00 Intake Total 550 ml 240 ml 780 ml Balance 550 ml 240 ml 780 ml medications Current Medications Medications Dose Ordered Sig/Krista Route Start Time Stop Time Status Last Admin Dose Admin Acetaminophen/ Hydrocodone Bitart 1 tab Q4HP PRN PO 08/06/25 22:00 Ondansetron HCl 4 mg Q4HP PRN IV 08/06/25 22:00 Acetaminophen 650 mg Q6HP PRN PO 08/06/25 22:00 08/07/25 13:19 650 MG Albuterol 2.5 mg Q6HPRN PRN NEB 08/06/25 22:00 Ipratropium [place] 0.5 mg Q6HPRN PRN NEB 08/06/25 22:00 Azithromycin 250 ml @ 125 mls/hr Q24H IV 08/07/25 22:45 08/07/25 21:58 125 MLS/HR Ceftriaxone Sodium 50 ml @ 100 mls/hr DAILY@09 IV 08/08/25 09:00 08/08/25 11:56 100 MLS/HR Hydromorphone HCl 0.25 mg Q4HPRN PRN IV 08/08/25 01:15 Examination General Appearance: Cooperative. Well developed. Well nourished. NAD Head Exam: Normal inspection Neck Exam: Normal inspection. Non-tender. Normal alignment Pulmonary/Respiratory: Bilateral rhonchi. Chest non-tender. Clear bilateral breath sounds, no crackles, no wheezing. Cardiovascular/Chest: Regular rate and rhythm. No murmurs. No JVD. Peripheral Pulses: 2+ Radial (R). 2+ Radial (L). 2+ Pedal (R). 2+ Pedal (L) Abdominal Exam: Normal bowel sounds. Soft. normal abdomen, no visible veins, Nontender. No hepatospenomegaly. No masses Ankle Exam: Negative ankle edema Lower extremities: Negative lower extremity edema Neuro/Mental Status: A&O x4. Coherent. Thoughts/Psych: Normal thought pattern. Appropriate mood and affect. Good judgement and insight Skin Exam: Normal inspection. Normal color. Warm. Dry laboratory and microbiology Laboratory Tests 08/08/25 04:31 Test 08/08/25 04:31 Range/Units Serum Glucose 76 74-106 mg/dL Microbiology Date/Time Source Procedure Growth Status 08/07/25 18:54 Voided Urine Urine Culture - Preliminary No growth Resulted Problem List/Assessment/Plan Problem List/Assessment/Plan Assessment and plan Atypical pneumonia Possible viral pneumonia Chest X-ray: Increased interstitial prominence. This may represent pulmonary vascular congestion and/or viral pneumonia. ESR CRP Pain management with Tylenol and [place] Zofran 4 mg IV q4h Azithromycin IV daily IV NS 100 mL MLS/HR one Albuterol 2.5 mg nebs q6h Ipratropium 0.5 mg NEB q6h sputum culture History of hereditary cardiomyopathy Cardiomegaly due to above Echocardiogram ordered Chest X-ray: Cardiomegaly BNP 5.26 Brain tumor on radiation therapy Paraspinal metastasis Head CT (04/14/21): No intracranial hemorrhage or skull fracture. The brain is normal in appearance. Gender affirming care Diet: Cardiac Goals of care: Full code Plan discussed with patient Plan discussed with Dr. Winter Plan discussed with: Patient Date of Service: Aug 08, 2025 Billing Provider: MOLINA LAMAR Common Visit Codes: [id number] INP/OBS CARE(HIGH) MOLINA LAMAR Aug 08, 2025 13:36 CHATO WINTER MD Aug 08, 2025 23:46
--- NOTE | 2025-08-08 14:45 | DVHSR ---
APPROVED REPORT EXAM: Two-dimensional and M-mode echocardiogram with Doppler and color Doppler. Blood Pressure: 101/50 mmHg INDICATION Chest Pain RISK FACTORS Height: 65, Weight: 139 DIMENSIONS LVDd 4.9 (3.8-5.7cm) LA (2D) 3.7 (1.9-4.0cm) Aortic Root 3.3 (2.0-3.7cm) LVDs 3.3 (2.5-4.0cm) LA (MM) (1.9-4.0cm) Aortic Cusp Exc 2.0 (1.5-2.0cm) EF (%) 60.0 (55-70%) Rt. Atrium 2.7 (1.9-4.0cm) Asc. Aorta cm IVSd 0.9 (0.7-1.1cm) RV (D) (1.8-2.4cm) PWd 0.8 (0.7-1.1cm) Mitral Valve Mitral Mitral Stenosis E wave 0.95m/s MV Mean GR. mmHg A wave 0.58m/s MV Peak GR. mmHg E/A ratio 1.6 2D MVA cm2 DECEL Time 233ms PRESS 1/2 Time ms Aortic Valve Aortic Valve Aortic Stenosis V1 0.88m/s AO Mean GR. 3mmHg V2 1.29m/s AO Peak GR. 7mmHg LVOT Diameter 2.0 (1.8-2.4cm) Doppler CONNER 2.14cm2 Pulmonic Valve V2 0.82m/s Tricuspid Valve TR Velocity 1.94m/s RVSP 18mmHg Conclusion Technically good study. Sinus rhythm. Normal chamber sizes. Valves are normal. EF of 60% with normal RV function Dopplers normal. No pericardial effusion masses or vegetations.
[2025-08-08] MEDS: IPRATROPIUM BROM 0.5 MG/2.5ML INH SOL NEB PRN (21:40)
[2025-08-08] MEDS: ALBUTEROL SULF 2.5 MG/0.5ML(0.5%) NEB SOLN NEB PRN (21:40)
[2025-08-09] VITALS (11 sets, daily range): BP systolic 91–110; BP diastolic 49–71; PULSE 64–89; RESP 18–20; TEMP 98–98.2; O2SAT 89–98
[2025-08-09] MEDS: PANTOPRAZOLE 40 MG TAB PO SCH (05:27)
[2025-08-09 06:00] LABS: Hematocrit 40.2 % (41.0-53.0); Hemoglobin 14.2 g/dL (13.5-17.5); Mean Corpuscular Hemoglobin 31.9 pg (28.0-32.0); Mean Corpuscular Volume 90.6 fL (80.0-100.0); Nucleated Red Blood Cells % 0.1 %
[2025-08-09 06:21] LABS: Alanine Aminotransferase 33 U/L (7-40); Albumin 4.0 g/dL (3.2-4.8); Alkaline Phosphatase 70 U/L (46-116); Anion Gap 11 (5-15); BUN/Creatinine Ratio 6.9 (10.0-20.0); Bilirubin, Total 0.6 mg/dL (0.2-1.0); Calcium 9.1 mg/dL (8.7-10.4); Carbon Dioxide 26 mmol/L (20-31); Chloride 105 mmol/L (98-107); Glucose 82 mg/dL (74-106); Potassium 4.3 mmol/L (3.5-5.1); Sodium 142 mmol/L (136-145); Total Protein 6.5 g/dL (5.7-8.2)
[2025-08-09 06:35] LABS: Blood Urea Nitrogen 7 mg/dL (9-23)
[2025-08-09] MEDS: KETOROLAC TROMETH 30 MG/ML 1ML VIAL IV PRN (13:42)
--- NOTE | 2025-08-09 14:26 | DVHPNRES ---
Progress Note Date Seen: Aug 09, 2025 Resident Creating Document: MOLINA LAMAR RESIDENT Medical Necessity Reason Pt with a Central, PICC or Fol: No Subjective Review of Systems Patient seen at bedside. Echo normal ejection fraction 60%. Complains of intermittent shortness of breath, nebulizations and oxygen provided. 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 She also complains of shortness of breath and cough we started with the same time as the chest pain. Patient reports having headache since the past 3 days. Patient reports that a recent cardiac stress test done was normal. Patient denies any nausea, vomiting or syncope. 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, hereditary cardiomyopathy, on testosterone hormone replacement therapy Family history: Family history of hereditary cardiomyopathy in mother and brother Social history: to pack-year smoking history, denies alcohol and drug use Allergic history: no known allergies Constitutional: Headache, dizziness Eyes: No Pain, No Vision change, No Conjunctivae inflammation, No Eyelid inflammation, No Other, No Redness ENT: No Ear pain, No Ear discharge, No Nose pain, No Nose discharge, No Nose congestion, No Mouth pain, No Mouth swelling, No Throat pain, No Throat swelling, No Other Cardiovascular: Chest Pain, Palpitations, No Orthopnea, No Paroxysmal No Dyspnea, No Edema, No Lt Headedness, No Other Respiratory: Cough, No Dry, Shortness of breath, No SOB with exertion, No Wheezing, No Hemoptysis, No Pleuritic Pain, No Sputum, No Other Gastrointestinal: No Nausea, No Vomiting, No Abdominal Pain, No Diarrhea, No Constipation, No Melena, No Hematochezia, No Other Genitourinary: No Dysuria, No Frequency, No Incontinence, No Hematuria, No Retention, No Other Musculoskeletal: No other, No neck pain, No shoulder pain, No arm pain, No back pain, No hand pain, No leg pain, No foot pain Skin: No Rash, No Lesions, No Jaundice, No Bruising, No Other Objective vital signs Vital Sign Date Time Temp Pulse Resp B/P (MAP) Pulse Ox O2 Delivery O2 Flow Rate FiO2 08/09/25 10:57 89 18 104/68 96 08/09/25 08:58 98.0 98.0 08/09/25 08:00 Room Air* 0 21 Total Intake and Output 08/08/25 08/08/25 08/09/25 15:00 23:00 07:00 Intake Total 50 ml 850 ml 980 ml Balance 50 ml 850 ml 980 ml medications Current Medications Medications Dose Ordered Sig/Krista Route Start Time Stop Time Status Last Admin Dose Admin Ondansetron HCl 4 mg Q4HP PRN IV 08/06/25 22:00 Acetaminophen 650 mg Q6HP PRN PO 08/06/25 22:00 08/08/25 15:43 650 MG Albuterol 2.5 mg Q6HPRN PRN NEB 08/06/25 22:00 08/08/25 21:40 2.5 MG Ipratropium [place] 0.5 mg Q6HPRN PRN NEB 08/06/25 22:00 08/08/25 21:40 0.5 MG Azithromycin 250 ml @ 125 mls/hr Q24H IV 08/07/25 22:45 08/08/25 22:14 125 MLS/HR Ceftriaxone Sodium 50 ml @ 100 mls/hr DAILY@09 IV 08/08/25 09:00 08/09/25 09:23 100 MLS/HR Hydromorphone HCl 0.25 mg Q4HPRN PRN IV 08/08/25 01:15 Ketorolac Tromethamine 15 mg Q6HPRN PRN IV 08/08/25 14:00 08/10/25 23:59 08/09/25 13:42 15 MG Pantoprazole Sodium 40 mg DAILY@0600 PO 08/09/25 06:00 08/09/25 05:27 40 MG Examination General Appearance: Cooperative. Well developed. Well nourished. NAD Head Exam: Normal inspection Neck Exam: Normal inspection. Non-tender. Normal alignment Pulmonary/Respiratory: Bilateral rhonchi. Chest non-tender. Clear bilateral breath sounds, no crackles, no wheezing. Cardiovascular/Chest: Regular rate and rhythm. No murmurs. No JVD. Peripheral Pulses: 2+ Radial (R). 2+ Radial (L). 2+ Pedal (R). 2+ Pedal (L) Abdominal Exam: Normal bowel sounds. Soft. normal abdomen, no visible veins, Nontender. No hepatospenomegaly. No masses Ankle Exam: Negative ankle edema Lower extremities: Negative lower extremity edema Neuro/Mental Status: A&O x4. Coherent. Thoughts/Psych: Normal thought pattern. Appropriate mood and affect. Good judgement and insight Skin Exam: Normal inspection. Normal color. Warm. Dry laboratory and microbiology Laboratory Tests 08/09/25 04:30 Test 08/09/25 04:30 Range/Units Serum Glucose 82 74-106 mg/dL Microbiology Date/Time Source Procedure Growth Status 08/07/25 18:54 Voided Urine Urine Culture - Preliminary Resulted Problem List/Assessment/Plan Problem List/Assessment/Plan Assessment and plan Atypical pneumonia Possible viral pneumonia Chest X-ray: Increased interstitial prominence. This may represent pulmonary vascular congestion and/or viral pneumonia. ESR CRP Pain management with Tylenol and [place] Zofran 4 mg IV q4h Azithromycin IV daily IV NS 100 mL MLS/HR one Albuterol 2.5 mg nebs q6h Ipratropium 0.5 mg NEB q6h sputum culture History of hereditary cardiomyopathy Cardiomegaly due to above Echocardiogram - EF 60% Chest X-ray: Cardiomegaly BNP 5.26 Brain tumor on radiation therapy Paraspinal metastasis Head CT (04/14/21): No intracranial hemorrhage or skull fracture. The brain is normal in appearance. Gender affirming care Diet: Cardiac Goals of care: Full code Plan discussed with patient Plan discussed with Dr. Winter Plan discussed with: Patient My Orders My Orders Orders - MOLINA LAMAR Procedure Category Date Status Time Complete Blood Count LAB 08/10/25 Verified 04:00 Basic Metabolic Panel LAB 08/10/25 Verified 04:00 Date of Service: Aug 09, 2025 Billing Provider: CHATO WINTER MD Common Visit Codes: [id number] INP/OBS CARE(HIGH) MOLINA LAMAR Aug 09, 2025 14:26 CHATO WINTER MD Aug 10, 2025 08:06
[2025-08-10] VITALS (7 sets, daily range): BP systolic 99–109; BP diastolic 58–69; PULSE 62–80; RESP 18–20; TEMP 97.4–98.3; O2SAT 97–98
[2025-08-10 11:35] LABS: Hematocrit 43.1 % (41.0-53.0); Hemoglobin 15.1 g/dL (13.5-17.5); Mean Corpuscular Hemoglobin 31.8 pg (28.0-32.0); Mean Corpuscular Volume 91.0 fL (80.0-100.0); Nucleated Red Blood Cells % 0.0 %
[2025-08-10 11:42] LABS: Anion Gap 10 (5-15); Carbon Dioxide 28 mmol/L (20-31); Chloride 106 mmol/L (98-107); Potassium 3.9 mmol/L (3.5-5.1); Sodium 144 mmol/L (136-145)
[2025-08-10 11:43] LABS: Calcium 9.8 mg/dL (8.7-10.4)
[2025-08-10 11:48] LABS: BUN/Creatinine Ratio 10.0 (10.0-20.0); Blood Urea Nitrogen 9 mg/dL (9-23)
[2025-08-10 11:50] LABS: Glucose 66 mg/dL (74-106)
[2025-08-10] MEDS ORDERED: AZIT-185 PO (14:51)
[2025-08-10] MEDS: ACETAMINOPHEN 325 MG TAB PO ONE (15:15)
--- NOTE | 2025-08-10 15:22 | DVHDSRES ---
Discharge Summary Date of Admission Resident Creating Document: MOLINA LAMAR RESIDENT Aug 06, 2025 at 21:57 Date of Discharge: Aug 10, 2025 Labs/Diagnostic Data: Laboratory Results Test 08/10/25 10:21 08/09/25 04:30 08/07/25 18:54 08/06/25 23:50 White Blood Count 5.9 10^3/uL (4.4-10.8) Red Blood Count 4.74 10^6/uL (4.5-5.90) Hemoglobin 15.1 g/dL (13.5-17.5) Hematocrit 43.1 % (41.0-53.0) Mean Corpuscular Volume 91.0 fL (80.0-100.0) Mean Corpuscular Hemoglobin 31.8 pg (28.0-32.0) Mean Corpuscular Hemoglobin Concent 35.0 g/dL (32.0-36.0) Red Cell Distribution Width 11.9 % (11.8-14.3) Platelet Count 272 10^3/uL (140-450) Mean Platelet Volume 8.7 fL (6.9-10.8) Neutrophils (%) (Auto) 62.6 % (37.0-80.0) Lymphocytes (%) (Auto) 28.7 % (10.0-50.0) Monocytes (%) (Auto) 6.4 % (0.0-12.0) Eosinophils (%) (Auto) 1.8 % (0.0-7.0) Basophils (%) (Auto) 0.5 % (0.0-2.0) Neutrophils # (Auto) 3.7 10 ^3/uL (1.6-8.6) Lymphocytes # (Auto) 1.7 10 ^3/uL (0.4-5.4) Monocytes # (Auto) 0.4 10 ^3/uL (0-1.3) Eosinophils # (Auto) 0.1 10 ^3/uL (0-0.8) Basophils # (Auto) 0 10 ^3/uL (0-0.2) Nucleated Red Blood Cells 0.0 % Sodium Level 144 mmol/L (136-145) Potassium Level 3.9 mmol/L (3.5-5.1) Chloride Level 106 mmol/L (98-107) Carbon Dioxide Level 28 mmol/L (20-31) Anion Gap 10 (5-15) Blood Urea Nitrogen 9 mg/dL (9-23) Creatinine 0.90 mg/dL (0.700-1.30) Glomerular Filtration Rate Calc 118 mL/min (>90) BUN/Creatinine Ratio 10.0 (10.0-20.0) Serum Glucose 66 mg/dL (74-106) Calcium Level 9.8 mg/dL (8.7-10.4) Total Bilirubin 0.6 mg/dL (0.2-1.0) Aspartate Amino Transferase (AST) 24 U/L (13-40) Alanine Aminotransferase (ALT) 33 U/L (7-40) Alkaline Phosphatase 70 U/L (46-116) Total Protein 6.5 g/dL (5.7-8.2) Albumin 4.0 g/dL (3.2-4.8) Urine Opiates Screen Neg (NEGATIVE) Urine Fentanyl Screen Neg (NEGATIVE) Urine Barbiturates Screen Neg (NEGATIVE) Urine Phencyclidine Screen Neg (NEGATIVE) Urine Amphetamines Screen Neg (NEGATIVE) Urine Benzodiazepines Screen Neg (NEGATIVE) Urine Cocaine Screen Neg (NEGATIVE) Urine Cannabinoids Screen Neg (NEGATIVE) Influenza Type A Antigen Negative (Negative) Influenza Type B Antigen Negative (Negative) SARS-CoV-2 Antigen (Rapid) Negative (NEGATIVE) Test 08/06/25 22:44 08/06/25 19:46 08/06/25 17:15 08/06/25 16:29 Erythrocyte Sedimentation Rate 2 mm/hr (0-20) Magnesium Level 2.1 mg/dL (1.6-2.6) Troponin I High Sensitivity 5 ng/L (</=54) C-Reactive Protein High Sensitivity 0.05 mg/dL (<1.0) Urine Color Colorless (Yellow) Urine Clarity Clear (Clear) Urine pH 7.0 (5.0-9.0) Urine Specific Equality 1.013 (1.001-1.035) Urine Protein Negative (Negative) Urine Ketones Negative (Negative) Urine Blood Negative /uL (Negative) Urine Nitrite Negative (Negative) Urine Bilirubin Negative (Negative) Urine Urobilinogen Normal mg/dL (Negative) Urine Leukocyte Esterase Negative /uL (Negative) Urine RBC <1 /hpf (0 - 3) Urine Microscopic WBC 2 /HPF (0-3) Urine Squamous Epithelial Cells Few /hpf (<5) Urine Bacteria Few /hpf (None Seen) Urine Glucose Normal mg/dL (Normal) B-Type Natriuretic Peptide 5.26 pg/mL (0-100) Test 08/06/25 16:24 Lactic Acid Level 0.8 mmol/L (0.4-2.0) Other Laboratory Tests 08/10/25 10:21 Brief Hx & Hospital Course: Brief history on arrival: This is a 30-year-old male with past medical history of brain tumor and radiation therapy, 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 Patient also complains of shortness of breath and cough. Patient reports having headache since the past 3 days. Patient reports that a recent cardiac stress test done was normal. Patient denies any nausea, vomiting or syncope. Hospital course: Patient was admitted along the lines of acute chest pain, ACS ruled out based on EKG, troponins. An echocardiogram was completed, showing ejection fraction 60% with normal RV function. Carotid Doppler show less than 50% left, right RCA narrowing. Chest x-ray shows increased interstitial prominence likely representing pneumonia. Serologies negative for influenza, COVID. Patient was started on IV azithromycin, supportive management with IV fluids, med neb breathing treatment. Patient's symptoms improved. Patient is stable for discharge and will complete antibiotic course with oral antibiotics. Conditions managed during stay: Community-acquired pneumonia, due to Gram-negative, Gram-positive bacteria Viral pneumonia, possible History of hereditary cardiomyopathy Cardiomegaly due to above Chest pain, ruled out ACS Musculoskeletal chest pain Brain tumor on radiation therapy Paraspinal metastasis Gender affirming care Plan: Complete antibiotic course with Z-Mele; take 2 pills on day 1, thereafter 1 pill daily for 4 days Follow with PCP in 1 week Operations or Procedures APPROVED REPORT EXAM: Two-dimensional and M-mode echocardiogram with Doppler and color Doppler. Blood Pressure: 101/50 mmHg INDICATION Chest Pain RISK FACTORS Height: 65, Weight: 139 DIMENSIONS LVDd 4.9 (3.8-5.7cm) LA (2D) 3.7 (1.9-4.0cm) Aortic Root 3.3 (2.0- 3.7cm) LVDs 3.3 (2.5-4.0cm) LA (MM) (1.9-4.0cm) Aortic Cusp Exc 2.0 (1.5- 2.0cm) EF (%) 60.0 (55-70%) Rt. Atrium 2.7 (1.9-4.0cm) Asc. Aorta cm IVSd 0.9 (0.7-1.1cm) RV (D) (1.8-2.4cm) PWd 0.8 (0.7-1.1cm) Mitral Valve Mitral Mitral Stenosis E wave 0.95m/s MV Mean GR. mmHg A wave 0.58m/s MV Peak GR. mmHg E/A ratio 1.6 2D MVA cm2 DECEL Time 233ms PRESS 1/2 Time ms Aortic Valve Aortic Valve Aortic Stenosis V1 0.88m/s AO Mean GR. 3mmHg V2 1.29m/s AO Peak GR. 7mmHg LVOT Diameter 2.0 (1.8-2.4cm) Doppler CONNER 2.14cm2 Pulmonic Valve V2 0.82m/s Tricuspid Valve TR Velocity 1.94m/s RVSP 18mmHg Conclusion Technically good study. Sinus rhythm. Normal chamber sizes. Valves are normal. EF of 60% with normal RV function Dopplers normal. No pericardial effusion masses or vegetations. CLINICAL HISTORY: presyncope TECHNIQUE: [place]-scale, Color and Duplex Doppler imaging of the bilateral carotid systems was performed. COMPARISON: None Findings: Right Carotid system: There is minimal plaque present in the right carotid system. Left Carotid system: There is minimal plaque present in the left carotid system. The following flow velocities were obtained (cm/sec). Right Carotid System: ICA PSV: 93 cm/sec ICA PDV: 28 cm/sec ICA/CCA Ratio: 1.2 Left Carotid System: ICA PSV: 87 cm/sec ICA PDV: 35 cm/sec ICA/CCA Ratio: 1.3 The right and left common carotid and external carotid arteries are patent. There is antegrade flow in both vertebral arteries and external carotid arteries. IMPRESSION: LESS THAN 50% RIGHT ICA NARROWING. LESS THAN 50% LEFT ICA NARROWING. Estimation of carotid stenosis is based on velocity parameters that correlate the residual internal carotid diameter with that of the more distal vessel in accordance with the [place] Symptomatic Carotid Endarterectomy Trial (NASCET). CHEST RADIOGRAPH Indication: cp Technique: Single frontal view of the chest was obtained COMPARISON: None FINDINGS: Lines and Tubes: None Lungs: Increased interstitial prominence. This may represent pulmonary vascular congestion and/or viral pneumonia. Pleura: No effusion.No pneumothorax. Cardiomediastinal contours: Cardiomegaly. Bones: Unremarkable IMPRESSION: Increased interstitial prominence. This may represent pulmonary vascular congestion and/or viral pneumonia. Condition at Discharge: Stable Final Diagnosis/Problems List Community-acquired pneumonia, due to Gram-negative, Gram-positive bacteria Viral pneumonia, possible History of hereditary cardiomyopathy Cardiomegaly due to above Chest pain, ruled out ACS Musculoskeletal chest pain Brain tumor on radiation therapy Paraspinal metastasis Gender affirming care Discharge Disposition: Home Discharge Instruct/Medications Diet: Regular Activity: No Restrictions, As Tolerated Follow Up/Referral: PCP in 1 week Oncology in outpatient clinic Medications: Complete antibiotic course with Z-Mele; take 2 pills on day 1, thereafter 1 pill daily for 4 days New Medications: Azithromycin (Zithromax Tablet) 250 Mg Tb 250 MG PO DAILY for 5 Days, #6 TAB Discontinued Medications: Naproxen (Naproxen) 500 Mg Tab 500 MG PO BID, #30 TAB Scheduled Azithromycin (Zithromax Tablet), 250 MG PO DAILY Discontinued Medications Naproxen (Naproxen), 500 MG PO BID Discharge Statement: "Patient was advised to return to the ER or call 911 if any headaches, dizziness, shortness of breath, chest pain, abdominal pain, bleeding, fevers, or worsening of medical condition. Patient was counseled about treatment plan, medications, possible side effects, patientverbalized understanding. All questions were answered to the best of my ability. This discharge took greater then 30 minutes in planning, reviewing documentation, counseling the patient, and discussing with other team members." ASSESSMENT ASSESSMENT Assessment Community-acquired pneumonia, due to Gram-negative, Gram-positive bacteria Viral pneumonia, possible History of hereditary cardiomyopathy Cardiomegaly due to above Chest pain, ruled out ACS Musculoskeletal chest pain Brain tumor on radiation therapy Paraspinal metastasis Gender affirming care Date of Service: Aug 10, 2025 Billing Provider: CHATO WINTER MD Common Visit Codes: 53488-NZH/OBS DISCH DAY >30min PAULIE SHERMAN RESIDENT Aug 10, 2025 15:22 CHATO WINTER MD Aug 10, 2025 21:51
--- NOTE | 2025-08-11 10:41 | ECG ---
[facility] Test Date: 2025-08-06 Test Time: 15:14:50 Pat Name: DANA PEÑALOZA Department: Room: 0202T A Gender: M Pediatric Nurse Practitioner: JULIA : 1995 Requested By: BHARAT PADILLA Order Number: [id number] Reading MD: Antoni Stewart Measurements Intervals [place] Rate: 60 P: 31 CT: 187 QRS: -1 QRSD: 97 T: 1 QT: 382 QTc: 382 Interpretive Statements Sinus rhythm Baseline wander in lead(s) V1,V2,V3,V4,V5,V6 Electronically Signed On 08-12-2025 17:37:11 PST by Antoni Stewart Please click the below link to view image of tracing.
== END 2025-08-10 16:59 | disposition home or self-care (01) | DRG 137 ==
LOC: EDBD 15:05 → EDUNIT# 15:05 → ER 15:05 → OVERFLOW 21:57 → TELE-CENTR 08-07 18:40
PROVIDERS: ADMIT Internal Medicine; ATTEND Internal Medicine
DX: J15.69 Pneumonia due to other Gram-negative bacteria (principal); D49.6 Neoplasm of unspecified behavior of brain; J15.9 Unspecified bacterial pneumonia; J12.9 Viral pneumonia, unspecified; Z20.822 Contact with and (suspected) exposure to COVID-19; I51.7 Cardiomegaly; R07.89 Other chest pain; Z82.49 Family history of ischemic heart disease and other diseases of the circulatory system
CPT/HCPCS: 36415; 71045; 80048; 80053; 80307; 81001; 83605; 83735; 83880; 84484; 85025; 85652; 86141; 87086; 87426; 87804; 93005; 93306; 93886; 94640; 96365; G0378; J1885